=== PATIENT | male | born 1990 | race Caucasian/White ===

== ENCOUNTER 2021-07-22 05:31 | Emergency (ER) | payer SELFPAY ==
[2021-07-22 05:50] VITALS: BP 130/70; PULSE 62; RESP 18; TEMP 37; O2SAT 100; BMI 23.0
--- NOTE | 2021-07-22 06:18 | ED_ITS ---
HPI - Back Pain/Injury General: Chief Complaint: Back Pain/Injury Stated Complaint: back pain Time Seen by Provider: 07/22/21 06:04 History of Present Illness: Patient comes in with mid back pain. States that 4 days ago he was pulling on some chainsaws and that his back felt tight that night. States the next day it felt a little worse, then he was carrying a sack of feed into the house for his and he felt something pull in his mid back. States the next morning he woke up and has not been hardly able to move normal since then. He describes the pain as sharp, constant, worse with movement, mid right upper back. Associated symptoms: Deny abdominal pain, dysuria, fever(s), nausea or vomiting Review of Systems Const: Denies: fever(s) or body aches Eyes: Denies: change in vision or blurry vision ENMT: Denies: throat pain or odynophagia Card: Denies: chest pain or palpitations Resp: Denies: dyspnea or productive cough GI: Denies: abdominal pain, nausea or vomiting : Denies: flank pain or dysuria Musc: Reports: back pain; Denies: neck pain Skin/Breast: Denies: rash or pruritus Neuro: Denies: headache(s) or numbness in extremities Psych: Denies: anxiety or change in appetite Endo: Denies: polyuria or excessive sweating Physical Exam Const: COMMON NORMALS: no acute distress, patient oriented x3, healthy appearing and alert HENMT: COMMON NORMALS: normocephalic and atraumatic HEAD & SCALP: normocephalic and atraumatic Eye: COMMON NORMALS: Equal, round and reactive pupils present and EOMs intact bilaterally PUPIL: Yes Equal, round and reactive pupils present Neck/C-Spine: COMMON NORMALS: full ROM and supple Resp: COMMON NORMALS: normal respiratory effort, No retractions and No use of accessory muscles Cardio: COMMON NORMALS: regular rate and regular rhythm RATE: regular rate RHYTHM: regular rhythm GI: COMMON NORMALS: Normal to inspection, nondistended, normoactive bowel sounds present, Soft to palpation and non-tender PALPATION: Yes Soft to palpation Back/Pelvis: OTHER: tenderness palpation lateral to midline in his right upper back with palpable muscle tightness. Extremity: COMMON NORMALS: normal to inspection and full ROM Neuro: COMMON NORMALS: patient oriented x3 SENSORIUM/ORIENTATION: Yes alert Psych: COMMON NORMALS: mental status grossly normal and cooperative Skin: COMMON NORMALS: no rashes or lesions noted and no wounds GENERAL SKIN EXAM: no rashes or lesions noted Course Vital Signs: Vital signs: Vital Signs Temperature 98.6 F 07/22/21 05:50 Pulse Rate 62 07/22/21 05:50 Respiratory Rate 18 07/22/21 05:50 Blood Pressure 130/70 07/22/21 05:50 Pulse Oximetry 100 07/22/21 05:50 MDM - Back Pain/Injury Medical Decision Making Patient comes in with mid back pain. States that 4 days ago he was pulling on some chainsaws and that his back felt tight that night. States the next day it felt a little worse, then he was carrying a sack of feed into the house for his and he felt something pull in his mid back. States the next morning he woke up and has not been hardly able to move normal since then. He describes the pain as sharp, constant, worse with movement, mid right upper back. On physical exam he has tenderness palpation lateral to midline in his right upper back with palpable muscle tightness. We will start him on steroids, anti-inflammatories, encouraged heat, and discharge with precautions to return for worsening or changing symptoms. Discharge Plan Discharge Patient Disposition: Home Clinical Impression: Muscle spasm of back Condition: Stable Prescriptions: New prednisone 20 mg tablet 60 mg PO DAILY 5 Days Qty: 12 0RF naproxen 500 mg tablet 500 mg PO BID Qty: 10 0RF Discharge Orders: Discharge ED (Routine); Ordered 07/22/21 Ordered By: Ronald Sheffield Referrals: Althea Redmond MD [Primary Care Provider] - Patient Instructions: Muscle Spasm (ED) Coding Level of Care Code ED [employer] for Florencio Keating
[2021-07-22] MEDS: predniSONE 20 mg Tablet 60 MG PO (06:19)
[2021-07-22] MEDS: naproxen 500 mg Tablet PO (06:19)
[2021-07-22 06:24] VITALS: PULSE 74; RESP 16; O2SAT 98
== END 2021-07-22 06:25 | disposition home or self-care (01) ==
PROVIDERS: Emergency Provider Emergency Medicine; PCP Family Medicine
DX: M62.830 Muscle spasm of back (principal)
CPT/HCPCS: 99283; J7512